=== PATIENT | male | born 1985 | race Hispanic/Latino ===

== ENCOUNTER 2018-12-18 14:38 | Emergency (ER) | payer SELFPAY ==
[~2018-12-18] VITALS: Ht 180.3 cm; Wt 131.5 kg
[2018-12-18] MEDS ORDERED: MORPHINE SULFATE 2 MG/ML SYR 1ML IV NR (16:30)
--- NOTE | 2018-12-18 16:40 | NUR ---
PATIENT PLACED IN ROOM 5
--- NOTE | 2018-12-18 16:42 | Diagnostic Imaging Report ---
Exam: Right ankle radiographs-3 views Clinical History: Query fracture. Comparison: None. Findings/Impression: No evidence of acute fracture or malalignment. There is soft tissue edema in the medial ankle. Ankle mortise is preserved. There is a tiny well-corticated fragment adjacent to the distal fibula, which is more likely to represent sequela of prior trauma rather than acute avulsion fracture. Signed by: Dr. Lesvia Cornell MD on 12/18/2018 4:38 PM
[2018-12-18] MEDS ORDERED: ONDANSETRON HCL INJ 2MG/ML 2ML 2 MG/ML VIAL IV ONE (16:45)
--- NOTE | 2018-12-18 17:08 | NUR ---
PATIENT REFUSED CRUTCHES
== END 2018-12-18 17:02 | disposition home or self-care (01) ==
LOC: ER 14:38
DX: S93.491A Sprain of other ligament of right ankle, initial encounter (principal); X50.1XXA Overexertion from prolonged static or awkward postures, initial encounter; Y93.67 Activity, basketball; Y92.008 Other place in unspecified non-institutional (private) residence as the place of occurrence of the external cause
CPT/HCPCS: 99284